=== PATIENT | female | born 1975 | race Two or more races ===

== ENCOUNTER → 2024-09-16 | Outpatient (CLI) | payer MEDICAID, SELFPAY ==
--- NOTE | 2024-09-16 13:30 | XR_ITS ---
Examination: Pelvic ultrasound, transabdominal, complete Technique: Transabdominal ultrasound of the pelvis performed using grayscale imaging Date and time of exam: September 16, 2024 1406 hours INDICATIONS: Irregular heavy menses 1.5 years FINDINGS: Uterus 12.6 cm uterine fundal mass 3.4 cm uterine body mass 2.2 cm Endometrial stripe 0.6 cm Right ovary 2.3 cm arterial flow Left ovary 1.6 cm arterial flow 11 mm follicular cyst IMPRESSION: Uterine areas of probable fibroid degeneration as above, consider 6 month follow-up transvaginal pelvic sonography
== END | disposition home or self-care (01) ==
LOC: CDIM 13:28
PROVIDERS: PCP Physician Assistant; Referring Provider Physician Assistant; Visit Provider Physician Assistant
DX: N85.8 Other specified noninflammatory disorders of uterus (principal); N93.9 Abnormal uterine and vaginal bleeding, unspecified
CPT/HCPCS: 76856